=== PATIENT | male | born 1975 | race Caucasian/White ===

== ENCOUNTER → 2020-04-22 | Outpatient (CLI) | payer OTHER ==
[~2020-04-22] MED LIST: AMOX TR-K CLV1 EAC4 PO; BUSPIRONE HCL7.5 MG PO; CIPRO500 MG PO; COLACE100 MG PO; INDERAL TAB 2020 MG PO; METHOCARBAMOL500 MG PO; OMEPRAZOLE20 M2 PO; OXYCODONE HCL5 MG PO
== END ==
LOC: RAD 04-20 08:00
DX: K57.20 Diverticulitis of large intestine with perforation and abscess without bleeding (principal); K63.89 Other specified diseases of intestine
CPT/HCPCS: 74270

== ENCOUNTER → 2020-05-11 | Outpatient (CLI) | payer OTHER | LOC: OPSV2 08:00 | DX: Z01.812 Encounter for preprocedural laboratory examination (principal) ==

== ENCOUNTER 2020-05-15 07:30 | Inpatient (IN) | payer OTHER ==
[~2020-05-15] VITALS: Ht 185.4 cm; Wt 115.7 kg
[~2020-05-15 07:30] MED LIST changes: -BUSPIRONE HCL7.5 MG PO; -CIPRO500 MG PO; -COLACE100 MG PO
[2020-05-15] MEDS ORDERED: BUSPIRONE HCL7.5 MG PO (14:24)
[2020-05-16 06:57] LABS: HEMOGLOBIN 14.5 gm/dl (14.0-17.5); RED BLOOD COUNT 4.9 M/UL (4.20-5.50); WHITE BLOOD COUNT 10.1 K/UL (4.5-11.0)
[2020-05-16 07:21] LABS: BUN/CREATININE RATIO 18 (0-10)
[2020-05-17 07:03] LABS: HEMOGLOBIN 14.1 gm/dl (14.0-17.5); RED BLOOD COUNT 4.48 M/UL (4.20-5.50); WHITE BLOOD COUNT 6.6 K/UL (4.5-11.0)
[2020-05-17 07:36] LABS: BUN/CREATININE RATIO 9 (0-10)
[2020-05-18 06:47] LABS: HEMOGLOBIN 13.7 gm/dl (14.0-17.5); RED BLOOD COUNT 4.41 M/UL (4.20-5.50); WHITE BLOOD COUNT 5.8 K/UL (4.5-11.0)
[2020-05-18 07:11] LABS: BUN/CREATININE RATIO 10 (0-10)
[2020-05-19 06:34] LABS: HEMOGLOBIN 13.8 gm/dl (14.0-17.5); RED BLOOD COUNT 4.41 M/UL (4.20-5.50); WHITE BLOOD COUNT 6.4 K/UL (4.5-11.0)
[2020-05-19 07:01] LABS: BUN/CREATININE RATIO 13 (0-10)
[2020-05-19] MEDS ORDERED: COLACE100 MG PO (16:35)
[2020-05-19] MEDS ORDERED: METHOCARBAMOL500 MG PO (16:35)
[2020-05-19] MEDS ORDERED: OXYCODONE HCL5 MG PO (16:35)
== END 2020-05-19 17:25 | disposition home or self-care (01) | DRG 331 ==
LOC: ZOBSOF 13:47 → M/S 13:47
PROVIDERS: ADMIT Surgery
PROC: 0DQB0ZZ Repair Ileum, Open Approach (ICD-10-PCS; principal; 2020-05-15 15:00)
DX: Z43.2 Encounter for attention to ileostomy (principal); F41.9 Anxiety disorder, unspecified; I10 Essential (primary) hypertension; K21.9 Gastro-esophageal reflux disease without esophagitis; F17.210 Nicotine dependence, cigarettes, uncomplicated; Z20.822 Contact with and (suspected) exposure to COVID-19; E87.6 Hypokalemia; Z28.21 Immunization not carried out because of patient refusal
CPT/HCPCS: 36415; 80048; 83735; 84100; 85027; J0360; J0690; J1100; J1170; J1644; J1650; J2001; J2250; J2405; J2704; J2710; J3010; J3480; J7120; Q0177

== ENCOUNTER 2020-08-29 09:31 | Emergency (ER) | payer OTHER ==
[~2020-08-29 09:31] MED LIST changes: +BUSPIRONE HCL7.5 MG PO; +COLACE100 MG PO
[2020-08-29 09:56] LABS: HEMOGLOBIN 16.1 gm/dl (14.0-17.5); RED BLOOD COUNT 4.97 M/UL (4.20-5.50)
[2020-08-29 10:38] LABS: BUN/CREATININE RATIO 11 (0-10)
[2020-08-29] MEDS ORDERED: CIPRO500 MG PO (12:40)
== END 2020-08-29 13:20 | disposition home or self-care (01) ==
LOC: ER1 09:31
PROVIDERS: Physician Assistant
DX: K52.9 Noninfective gastroenteritis and colitis, unspecified (principal); K56.609 Unspecified intestinal obstruction, unspecified as to partial versus complete obstruction; I10 Essential (primary) hypertension
CPT/HCPCS: 80053; 81001; 82550; 82553; 83605; 83690; 83874; 84484; 85025; 87086; 96374; 96375; 99284; J2270; J2405; Q9967

== ENCOUNTER → 2021-11-16 | Outpatient (CLI) | payer SELFPAY ==
[~2021-11-16] MED LIST changes: +CIPRO500 MG PO
== END ==
LOC: EXRD 11-10 08:00
DX: R79.89 Other specified abnormal findings of blood chemistry (principal); R93.2 Abnormal findings on diagnostic imaging of liver and biliary tract
CPT/HCPCS: 76700